=== PATIENT | male | born 1980 | race Caucasian/White ===

== ENCOUNTER 2016-08-14 11:33 | Emergency (ER) | payer OTHER ==
[~2016-08-14 11:33] MED LIST: NO MEDICATIONS
[2016-08-14 11:35] LABS: URINE SOURCE CLEAN CATCH
[2016-08-14 11:39] LABS: URINE APPEARANCE SL CLOUDY; URINE BILIRUBIN NEG (NEG); URINE BLOOD TRACE-INTACT (NEG); URINE COLOR YELLOW; URINE GLUCOSE NEG (NORM); URINE KETONE NEG (NEG); URINE LEUKOCYTE ESTERASE 1+ (NEG); URINE NITRATE NEG (NEG); URINE PROTEIN TRACE (NEG); URINE SPECIFIC GRAVITY 1.025 (1.003-1.035); URINE UROBILINOGEN 0.2 MG/DL (NORM)
[2016-08-14 11:44] LABS: MICRO INDICATED? YES
[2016-08-14 11:47] LABS: CULTURE INDICATED? YES; URINE BACTERIA 1+ (NEG); URINE SQUAMOUS EPITHELIAL CELL OCCAS /[HPF]; URINE WBC 50-100 /[HPF] (0-5)
[2016-08-14 11:48] LABS: URINE AMORPHOUS SEDIMENT AMORP URATES; URINE GRANULAR CAST 0-2 /[HPF]; URINE HYALINE CAST 0-2 /[HPF]; URINE MUCUS PRESENT
[2016-08-17 08:23] LABS: CHLAMYDIA TRACH Detected (Not Detected); N GONOR Detected (Not Detected)
== END 2016-08-14 12:26 | disposition home or self-care (01) ==
LOC: SED 11:33
PROVIDERS: Emergency Medicine
DX: A64 Unspecified sexually transmitted disease (principal); F43.10 Post-traumatic stress disorder, unspecified; J45.909 Unspecified asthma, uncomplicated; F17.200 Nicotine dependence, unspecified, uncomplicated; Z88.0 Allergy status to penicillin
CPT/HCPCS: 81003; 87086; 87491; 87591; 96372; 99284; J0696